=== PATIENT | female | born 1945 | race Caucasian/White ===

== ENCOUNTER → 2024-05-18 12:28 | Outpatient (REF) | payer OTHER, SELFPAY | LOC: RAD 12:28 | PROVIDERS: ATTENDING PHYSICIAN Student in an Organized Health Care Education/Training Program; FAMILY PHYSICIAN Family Medicine | DX: N95.1 Menopausal and female climacteric states (principal); D17.1 Benign lipomatous neoplasm of skin and subcutaneous tissue of trunk | CPT/HCPCS: 76536; 77080 ==